=== PATIENT | female | born 1975 | race Caucasian/White ===

== ENCOUNTER 2023-06-06 21:55 | Emergency (ER) | payer OTHER ==
[~2023-06-06] VITALS: Ht 167.6 cm; Wt 72.6 kg
[2023-06-06 22:34] VITALS: BP 111/68; TEMP 98.6
[2023-06-07 00:15] VITALS: O2SAT 98
== END 2023-06-07 00:15 | disposition home or self-care (01) ==
LOC: ER 21:55
DX: H11.002 Unspecified pterygium of left eye (principal)